=== PATIENT | male | born 1990 | race Caucasian/White ===

== ENCOUNTER 2019-05-06 20:17 | Emergency (ER) | payer SELFPAY ==
[~2019-05-06] VITALS: Ht 165.1 cm; Wt 68.5 kg
[2019-05-06 20:19] VITALS: BP 132/76; Ht 165.1 cm; Wt 68.5 kg
== END 2019-05-06 21:05 | disposition home or self-care (01) ==
LOC: ED 20:17
DX: K08.89 Other specified disorders of teeth and supporting structures (principal); K05.10 Chronic gingivitis, plaque induced; I10 Essential (primary) hypertension

== ENCOUNTER 2020-04-27 14:25 | Emergency (ER) | payer OTHER ==
[~2020-04-27] VITALS: Ht 165.1 cm; Wt 63.5 kg
[2020-04-27 15:09] VITALS: Ht 165.1 cm; Wt 63.5 kg
[2020-04-27 16:42] LABS: BASOPHIL % 0.4 % (0.2-1.5)
[2020-04-27 16:46] LABS: RED CELL DISTRIBUTION WIDTH 16.9 % (12.1-16.2)
[2020-04-27 16:47] LABS: PLATELET COUNT 504 x10^3mcL (152-348)
[2020-04-27 17:16] LABS: BILIRUBIN TOTAL 0.63 mg/dL (0.20-1.00); CALCIUM 9.4 mg/dL (8.5-10.1); CARBON DIOXIDE 29.2 mmol/L (21-32); POTASSIUM SERUM 4.2 mmol/L (3.5-5.1); TOTAL PROTEIN, SERUM 7.6 g/dL (6.4-8.2)
[2020-04-27 17:25] LABS: ALBUMIN 2.3 g/dL (3.4-5.0); CREATININE SERUM 12.5 mg/dL (0.7-1.3)
[2020-04-27 20:27] LABS: APPEARANCE FLUID HAZY; COLOR FLUID PALE YELLOW; LYMPHOCYTE FLUID 0 %; RBC FLUID 80 /cumm; SOURCE FLUID ASCITES; WBC FLUID 2160 /cumm
[2020-04-27 20:28] LABS: MONOCYTE FLUID 7 %
[2020-04-27 21:31] VITALS: BP 121/74
== END 2020-04-27 21:31 | disposition left against medical advice (07) ==
LOC: ED 14:25
PROVIDERS: Student in an Organized Health Care Education/Training Program
DX: R10.816 Epigastric abdominal tenderness (principal); R10.30 Lower abdominal pain, unspecified; I10 Essential (primary) hypertension
CPT/HCPCS: J1885; J2270; J3490